=== PATIENT | female | born 1990 | race Caucasian/White ===

== ENCOUNTER 2017-09-15 09:21 | Emergency (ER) | payer MEDICAID ==
[~2017-09-15] VITALS: Ht 160 cm; Wt 149.0 kg
[~2017-09-15 09:21] MED LIST: ETHI1TAB26 PO
[2017-09-15 09:34] VITALS: BP 152/95
[2017-09-15 10:18] LABS: URINE HCG NEGATIVE (NEG)
[2017-09-15] MEDS ORDERED: HYDROcodone/acetaminophen 5mg/325mg tablet PO ONE (10:25)
[2017-09-15] MEDS ORDERED: orphenadrine citrate 60mg/2ml inj. IM ONE (10:25)
[2017-09-15] MEDS ORDERED: ketorolac trometh inj. 60 MG/2 ML VIAL IM ONE (10:25)
[2017-09-15] MEDS ORDERED: IBUP-1986 PO (10:40)
[2017-09-15] MEDS ORDERED: CYCL-1 PO (10:40)
== END 2017-09-15 10:49 | disposition home or self-care (01) ==
LOC: ER 09:22
DX: M54.41 Lumbago with sciatica, right side (principal); Z87.891 Personal history of nicotine dependence
CPT/HCPCS: 81025; 96372; 99284; J1885; J2360